=== PATIENT | male | born 1950 | race African-American/Black ===

== ENCOUNTER 2019-07-07 13:54 | Inpatient (IN) ==
[2019-07-07 19:47] LABS: Basophils % 0.3 % (0.0-0.8); Eosinophils # 0.1 10*3/uL (0.0-0.87); Eosinophils % 0.7 % (0.00-10.9); Hematocrit 30.3 VOL% (42.0-52.0); Hemoglobin 9.7 GM/DL (14.0-18.0); Immature Granulocytes % 0.4 %; Immature Granulocytes Absolute 0.03 #; Lymphocytes # 1.3 10*3/uL (1.4-4.0); Lymphocytes % 17.4 % (21.2-54.2); Mean Corpuscular Volume 93.5 FL (87-102); Mean Platelet Volume 11.3 FL (9.6-12.0); Monocytes % 6.8 % (1.7-12.7); Neutrophils % 74.4 % (38.7-73.9); Platelet Count 241 T/CUMM (130-400); Red Blood Count 3.24 MC/CUMM (3.8-5.5); Red Cell Distribution Width 15.5 % (9.3-17.3); White Blood Count 7.7 T/CUMM (4-12)
[2019-07-07 20:02] LABS: INR 1.1; PT Patient Result 11.8 SECS (9.6-12.2); Partial Thromboplastin Time 27.8 SECS (20.8-36.0)
[2019-07-07 20:13] LABS: Albumin 3.1 G/DL (3.4-5.0); Bilirubin,Total 0.5 MG/DL (0.2-1.0); Calcium 8.4 MG/DL (8.5-10.1); Osmolality,Calculated 296.3 MOS/KG (273-304); Total Protein 6.9 G/DL (6.4-8.3)
[2019-07-07 20:16] LABS: Free T4 (Free Thyroxine) 1.45 NG/DL (0.76-1.46); Thyroid Stimulating Hormone 1.01 uIU/ml (0.358-3.74)
[2019-07-07 20:38] LABS: Apearance,Urine CLEAR (Clear); Bilirubin,Urine Negative (Negative); Blood, Urine Negative (Negative); Glucose,Urine (UA) Negative (Negative); Ketones,Urine Negative (Negative); Nitrite,Urine Negative (Negative); Protein,Urine Negative; RBC,Urine 1 /HPF (0-4); Urine Color Yellow (Yellow); Urine Specific Gravity 1.008 (1.001-1.035); WBC,Urine <1 /HPF (0-6)
[2019-07-07] MEDS ORDERED: ENOXAPARIN 80 MG/0.8 ML SYRINGE SUBCUT STA (21:02)
[2019-07-07] MEDS ORDERED: FUROSEMIDE 40 MG/4 ML VIAL IV STA (21:13)
[2019-07-07] MEDS ORDERED: NITROGLYCERIN SL 0.4 MG TABLET SL PRN (21:15)
[2019-07-07] MEDS ORDERED: ONDANSETRON 4 MG/2 ML VIAL IV PRN (22:59)
[2019-07-07] MEDS ORDERED: MAGNESIUM SULF RIDER 4 GM in PREMIX 1 EACH IV PRN (22:59)
[2019-07-07] MEDS ORDERED: MAGNESIUM SULF RIDER 2 GM in PREMIX 1 EACH IV PRN (22:59)
[2019-07-07] MEDS ORDERED: MORPHINE 4 MG/1 ML VIAL IV PRN (22:59)
[2019-07-08] MEDS: PANTOPRAZOLE 40 MG TABLET PO SCH (09:50)
[2019-07-08] MEDS: miSOPROStoL 200 MCG TABLET PO SCH ×3 (11:55→21:23)
[2019-07-08] MEDS: ACETYLCYSTEINE 600 MG CAPSULE PO SCH (11:55)
[2019-07-08] MEDS ORDERED: POTASSIUM CHLORIDE RIDER 10 MEQ in PREMIX 1 EACH IV PRN (12:33)
[2019-07-08] MEDS ORDERED: MAGNESIUM SULF RIDER 2 GM in PREMIX 1 EACH IV PRN (12:33)
[2019-07-08] MEDS ORDERED: NON-FORMULARY MEDICATION (Omeprazole 20 MG) PO SCH (12:45)
[2019-07-08] MEDS ORDERED: GLUCAGON 1 MG VIAL IM PRN (12:51)
[2019-07-08] MEDS ORDERED: DEXTROSE 50% 25 GM/50 ML VIAL IV PRN (12:51)
[2019-07-08] MEDS: INSULIN GLARGINE 100 UNIT/ML SUBCUT SCH (13:58)
[2019-07-08] MEDS: ALLOPURINOL 300 MG TABLET PO SCH (14:50)
[2019-07-08] MEDS: FERROUS GLUCONATE 324 MG TABLET PO SCH ×2 (14:50→21:23)
[2019-07-08] MEDS: TORSEMIDE 20 MG TABLET PO SCH (14:50)
[2019-07-08] MEDS: ISOSORBIDE MONONITRATE 30 MG TABLET PO SCH (14:51)
[2019-07-08] MEDS: carvediloL 25 MG TABLET PO SCH ×2 (14:51→21:23)
[2019-07-08] MEDS: ASPIRIN EC 325 MG TABLET PO SCH (14:51)
[2019-07-08] MEDS: FUROSEMIDE 40 MG/4 ML VIAL IV SCH ×2 (14:52→16:16)
[2019-07-08] MEDS: BRIMONIDINE 0.2% OPH SOLN 5 ML BOTTLE BOTH EYES SCH ×2 (14:53→21:23)
[2019-07-08] MEDS: POTASSIUM CHLORIDE 8 MEQ CAPSULE PO SCH (14:53)
[2019-07-08] MEDS ORDERED: CHLORHEXIDINE 4% SOLN 118 ML BOTTLE TOP ONE (16:12)
[2019-07-08] MEDS ORDERED: SKIN HEALING OINT (AQUAPHOR) 50 GM TUBE TOP PRN (16:12)
[2019-07-08] MEDS: INSULIN REGULAR 100 UNIT/ML SUBCUT SCH ×2 (16:17→21:26)
[2019-07-08] MEDS: INSULIN LISPRO 100 UNIT/ML SUBCUT SCH (16:41)
[2019-07-08] MEDS: MUPIROCIN 2% OINT 22 GM TUBE TOP SCH ×2 (17:00→21:24)
[2019-07-08] MEDS: ATORVASTATIN 40 MG TABLET PO SCH (21:23)
[2019-07-08] MEDS ORDERED: LEVOFLOXACIN 500 MG TABLET PO ONE (23:00)
[2019-07-09] MEDS: ACETYLCYSTEINE 600 MG CAPSULE PO SCH ×2 (03:42→09:06)
[2019-07-09 05:29] LABS: Basophils % 0.4 % (0.0-0.8); Eosinophils # 0.1 10*3/uL (0.0-0.87); Eosinophils % 0.8 % (0.00-10.9); Hematocrit 29.4 VOL% (42.0-52.0); Hemoglobin 9.3 GM/DL (14.0-18.0); Immature Granulocytes % 0.6 %; Immature Granulocytes Absolute 0.05 #; Lymphocytes # 1.6 10*3/uL (1.4-4.0); Lymphocytes % 20.5 % (21.2-54.2); Mean Corpuscular HGB Conc 31.6 GM/DL (32-36); Mean Corpuscular Volume 95.5 FL (87-102); Monocytes % 6.5 % (1.7-12.7); Neutrophils % 71.2 % (38.7-73.9); Platelet Count 247 T/CUMM (130-400); Red Blood Count 3.08 MC/CUMM (3.8-5.5); Red Cell Distribution Width 15.5 % (9.3-17.3)
[2019-07-09 05:49] LABS: Calcium 8.4 MG/DL (8.5-10.1); Osmolality,Calculated 293.8 MOS/KG (273-304)
[2019-07-09] MEDS ORDERED: diphenhydrAMINE CAP 25 MG CAPSULE PO ONE (06:00)
[2019-07-09] MEDS ORDERED: DIAZEPAM 5 MG TABLET PO ONE (06:00)
[2019-07-09] MEDS ORDERED: LIDOCAINE 1% 20 ML VIAL ONE (06:43)
[2019-07-09] MEDS ORDERED: HEPARIN/NACL 0.9% 2 UNITS/ML 0 ML IV ONE (06:43)
[2019-07-09] MEDS ORDERED: SODIUM BICARB INJ 50 MEQ in SODIUM CHLORIDE 0.45% 1,000 ML IV SCH (07:30)
[2019-07-09] MEDS: INSULIN REGULAR 100 UNIT/ML SUBCUT SCH ×4 (08:12→21:15)
[2019-07-09 08:38] LABS: Total Protein (Chem) 7.1 G/DL (6.4-8.3)
[2019-07-09 08:39] LABS: Random Urine Protein (Bench) 9 MG/DL (<11.9)
[2019-07-09 08:42] LABS: Albumin (SPE) Rel % 53.9 %; Alpha 1 (SPE) Rel % 3.5 %; Alpha 2 (SPE) Rel % 11.4 %; Beta (SPE) Rel % 9.6 %; Gamma (SPE) Rel % 21.6 %
[2019-07-09 08:50] LABS: Albumin (SPE) 3.8 G/DL (3.2-5.3); Alpha 1 (SPE) 0.2 G/DL (0.1-0.4); Alpha 2 (SPE) 0.7 G/DL (0.4-1.0)
[2019-07-09 08:51] LABS: Beta (SPE) 0.7 G/DL (0.5-1.1); Gamma (SPE) 1.5 G/DL (0.7-1.7)
[2019-07-09] MEDS: TORSEMIDE 20 MG TABLET PO SCH (09:07)
[2019-07-09] MEDS: miSOPROStoL 200 MCG TABLET PO SCH (09:07)
[2019-07-09] MEDS: ALLOPURINOL 300 MG TABLET PO SCH (09:08)
[2019-07-09] MEDS: ASPIRIN EC 325 MG TABLET PO SCH (09:08)
[2019-07-09] MEDS: PANTOPRAZOLE 40 MG TABLET PO SCH (09:08)
[2019-07-09] MEDS: ISOSORBIDE MONONITRATE 30 MG TABLET PO SCH (09:08)
[2019-07-09] MEDS: carvediloL 25 MG TABLET PO SCH ×2 (09:08→21:11)
[2019-07-09] MEDS: POTASSIUM CHLORIDE 8 MEQ CAPSULE PO SCH (09:08)
[2019-07-09] MEDS: FERROUS GLUCONATE 324 MG TABLET PO SCH ×2 (09:08→21:11)
[2019-07-09] MEDS: INSULIN GLARGINE 100 UNIT/ML SUBCUT SCH (09:10)
[2019-07-09] MEDS: BRIMONIDINE 0.2% OPH SOLN 5 ML BOTTLE BOTH EYES SCH ×2 (09:11→21:10)
[2019-07-09] MEDS: INSULIN LISPRO 100 UNIT/ML SUBCUT SCH ×3 (09:11→16:18)
[2019-07-09] MEDS: MUPIROCIN 2% OINT 22 GM TUBE TOP SCH ×2 (09:23→21:10)
[2019-07-09] MEDS: FUROSEMIDE 40 MG/4 ML VIAL IV SCH (09:51)
[2019-07-09] MEDS: LEVOFLOXACIN 250 MG TABLET PO SCH (21:14)
[2019-07-09] MEDS: ATORVASTATIN 40 MG TABLET PO SCH (21:14)
[2019-07-10 04:44] LABS: Basophils % 0.3 % (0.0-0.8); Eosinophils # 0.1 10*3/uL (0.0-0.87); Eosinophils % 1.2 % (0.00-10.9); Hematocrit 27.1 VOL% (42.0-52.0); Hemoglobin 8.7 GM/DL (14.0-18.0); Immature Granulocytes % 0.4 %; Immature Granulocytes Absolute 0.03 #; Lymphocytes # 1.4 10*3/uL (1.4-4.0); Lymphocytes % 19.2 % (21.2-54.2); Mean Corpuscular HGB Conc 32.1 GM/DL (32-36); Mean Corpuscular Volume 92.5 FL (87-102); Mean Platelet Volume 11.7 FL (9.6-12.0); Monocytes % 7.7 % (1.7-12.7); Neutrophils % 71.2 % (38.7-73.9); Platelet Count 232 T/CUMM (130-400); Red Blood Count 2.93 MC/CUMM (3.8-5.5); Red Cell Distribution Width 15.6 % (9.3-17.3); White Blood Count 7.5 T/CUMM (4-12)
[2019-07-10 05:01] LABS: Calcium 8.8 MG/DL (8.5-10.1); Osmolality,Calculated 296.1 MOS/KG (273-304)
[2019-07-10] MEDS: INSULIN REGULAR 100 UNIT/ML SUBCUT SCH ×4 (08:33→21:30)
[2019-07-10] MEDS: INSULIN LISPRO 100 UNIT/ML SUBCUT SCH ×4 (08:33→17:09)
[2019-07-10 09:00] LABS: Immuno Free Light Chain Kappa 11.73 MG/DL (0.33-1.94); Immuno Free Light Chain Lambda 3.91 MG/DL (0.57-2.63)
[2019-07-10] MEDS: FERROUS GLUCONATE 324 MG TABLET PO SCH ×2 (09:21→21:28)
[2019-07-10] MEDS: TORSEMIDE 20 MG TABLET PO SCH (09:21)
[2019-07-10] MEDS: POTASSIUM CHLORIDE 8 MEQ CAPSULE PO SCH (09:21)
[2019-07-10] MEDS: PANTOPRAZOLE 40 MG TABLET PO SCH (09:22)
[2019-07-10] MEDS: ALLOPURINOL 300 MG TABLET PO SCH (09:22)
[2019-07-10] MEDS: carvediloL 25 MG TABLET PO SCH ×2 (09:22→21:29)
[2019-07-10] MEDS: ISOSORBIDE MONONITRATE 30 MG TABLET PO SCH (09:22)
[2019-07-10] MEDS: ASPIRIN EC 325 MG TABLET PO SCH (09:22)
[2019-07-10] MEDS: INSULIN GLARGINE 100 UNIT/ML SUBCUT SCH (09:23)
[2019-07-10] MEDS: BRIMONIDINE 0.2% OPH SOLN 5 ML BOTTLE BOTH EYES SCH ×2 (09:53→21:29)
[2019-07-10] MEDS: MUPIROCIN 2% OINT 22 GM TUBE TOP SCH ×2 (10:00→21:30)
[2019-07-10] MEDS ORDERED: DEXTROSE 10% 250 ML IV ONE (16:30)
[2019-07-10] MEDS: LEVOFLOXACIN 250 MG TABLET PO SCH (21:29)
[2019-07-10] MEDS: ATORVASTATIN 40 MG TABLET PO SCH (21:29)
[2019-07-11 05:39] LABS: Basophils % 0.3 % (0.0-0.8); Eosinophils # 0.1 10*3/uL (0.0-0.87); Eosinophils % 1.5 % (0.00-10.9); Hematocrit 30.3 VOL% (42.0-52.0); Hemoglobin 9.8 GM/DL (14.0-18.0); Immature Granulocytes % 0.2 %; Immature Granulocytes Absolute 0.02 #; Lymphocytes # 1.7 10*3/uL (1.4-4.0); Lymphocytes % 19.1 % (21.2-54.2); Mean Corpuscular HGB Conc 32.3 GM/DL (32-36); Mean Corpuscular Volume 92.7 FL (87-102); Mean Platelet Volume 11.7 FL (9.6-12.0); Monocytes % 5.9 % (1.7-12.7); Platelet Count 250 T/CUMM (130-400); Red Blood Count 3.27 MC/CUMM (3.8-5.5); Red Cell Distribution Width 15.7 % (9.3-17.3); White Blood Count 8.7 T/CUMM (4-12)
[2019-07-11 06:06] LABS: Calcium 8.8 MG/DL (8.5-10.1)
[2019-07-11 08:38] VITALS: BP 126/68
[2019-07-11] MEDS: POTASSIUM CHLORIDE 8 MEQ CAPSULE PO SCH (08:59)
[2019-07-11] MEDS: TORSEMIDE 20 MG TABLET PO SCH (08:59)
[2019-07-11] MEDS: INSULIN GLARGINE 100 UNIT/ML SUBCUT SCH (08:59)
[2019-07-11] MEDS: INSULIN LISPRO 100 UNIT/ML SUBCUT SCH ×2 (08:59→13:29)
[2019-07-11] MEDS: PANTOPRAZOLE 40 MG TABLET PO SCH (09:00)
[2019-07-11] MEDS: FERROUS GLUCONATE 324 MG TABLET PO SCH (09:00)
[2019-07-11] MEDS: BRIMONIDINE 0.2% OPH SOLN 5 ML BOTTLE BOTH EYES SCH (09:00)
[2019-07-11] MEDS: ALLOPURINOL 300 MG TABLET PO SCH (09:00)
[2019-07-11] MEDS: carvediloL 25 MG TABLET PO SCH (09:00)
[2019-07-11] MEDS: ISOSORBIDE MONONITRATE 30 MG TABLET PO SCH (09:00)
[2019-07-11] MEDS: ASPIRIN EC 325 MG TABLET PO SCH (09:00)
[2019-07-11] MEDS: MUPIROCIN 2% OINT 22 GM TUBE TOP SCH (09:00)
[2019-07-11] MEDS: INSULIN REGULAR 100 UNIT/ML SUBCUT SCH ×2 (09:00→13:29)
== END 2019-07-11 13:50 | disposition home or self-care (01) | DRG 280 ==
LOC: N.ED 13:54 → N.EDINP 21:03 → N.TELEN 23:09
PROVIDERS: ADMIT Internal Medicine Cardiovascular Disease; ATTEND Internal Medicine Cardiovascular Disease